=== PATIENT | male | born 1990 | race Caucasian/White ===

== ENCOUNTER 2018-12-07 09:29 | Emergency (ER) | payer SELFPAY ==
[~2018-12-07] VITALS: Ht 172.7 cm; Wt 70.0 kg
[~2018-12-07 09:29] MED LIST: ALBU17AE27 IH
[2018-12-07] MEDS ORDERED: LIDOCAINE 5% TRANSDERMAL PATCH TD ONE (11:00)
[2018-12-07] MEDS ORDERED: KETOROLAC TROMETHAMINE 30 MG/ML VIAL IM ONE (11:00)
[2018-12-07] MEDS ORDERED: CYCLOBENZAPRINE HCL 10 MG TABLET PO ONE (11:00)
[2018-12-07 13:21] VITALS: BP 112/72
== END 2018-12-07 13:45 | disposition home or self-care (01) ==
LOC: EMS 09:29
DX: M54.5 Low back pain (principal); J45.909 Unspecified asthma, uncomplicated; Z87.891 Personal history of nicotine dependence
CPT/HCPCS: 96372; 99283; J1885